=== PATIENT | female | born 1965 | race Two or more races ===

== ENCOUNTER 2018-05-24 08:50 | Day surgery (SDC) | payer MEDICAID ==
[2018-05-24] MEDS ORDERED: LIDOCAINE 2%HCL (LOCAL ANESTH.) INJ 20ML MDV ONE (09:04)
[2018-05-24] MEDS ORDERED: IODIXANOL 320MG/ML 100ML BTL IV ONE (09:04)
[2018-05-24] MEDS ORDERED: SODIUM CHL 0.9% 0 ML ONE (09:33)
[2018-05-24] MEDS ORDERED: fentaNYL CITRATE 100 MCG/2 ML VL ONE (09:33)
[2018-05-24] MEDS ORDERED: VERAPAMIL 2.5MG/ML INJ 2ML VIAL IV ONE (09:33)
[2018-05-24] MEDS ORDERED: MIDAZOLAM HCL 1MG/1ML-2 ML VIAL ONE (09:33)
[2018-05-24] MEDS ORDERED: ANGIOMAX 250 MG VIAL IV ONE (09:43)
[2018-05-24] MEDS ORDERED: HEPARIN SODIUM (PORCINE) 5000 UNITS/ML 1ML VIAL ONE (10:06)
[2018-05-24] MEDS ORDERED: HCTZ25T PO (10:57)
[2018-05-24] MEDS ORDERED: METF-370 PO (10:57)
== END 2018-05-24 12:35 | disposition home or self-care (01) ==
LOC: CATH 08:50
PROVIDERS: ATTEND Internal Medicine
DX: R94.39 Abnormal result of other cardiovascular function study (principal); E66.9 Obesity, unspecified; I10 Essential (primary) hypertension; E11.9 Type 2 diabetes mellitus without complications; I73.9 Peripheral vascular disease, unspecified; Z83.3 Family history of diabetes mellitus; Z82.49 Family history of ischemic heart disease and other diseases of the circulatory system; Z79.84 Long term (current) use of oral hypoglycemic drugs; Z79.899 Other long term (current) drug therapy
CPT/HCPCS: 93458; 99152; C1769; C1894; J1644; J3010; J7030; 37224; 75710; 99153; A6257; J2250; Q9967